=== PATIENT | male | born 2000 | race Two or more races ===

== ENCOUNTER 2018-01-21 23:01 | Emergency (ER) | payer SELFPAY ==
--- NOTE | 2018-01-21 23:19 | Emergency Department Record ---
History of Present Illness - General Chief complaint: ENT Stated complaint: MOTH IN LT EAR Time Seen by Provider: 01/21/18 23:13 Source: Patient Mode of Arrival: Ambulatory Limitations: No limitations - History of Present Illness Initial comments: The patient is here due to having a moth fly into his L ear about 10 minutes prior to presenting to the ER. The patient was very anxious and the moth was removed with lavage. The patient is doing 100% better now. MD complaint: Ear pain Onset/Timin -: Minutes(s) Location: L ear Context- Ear: Other - Related Data Previous Rx's Medication Instructions Recorded Neomycin/Polymyxin B Sulf/Hc 3 drop AFFEAR QID #10 ml 01/21/18 [Cortisporin Otic] Allergies Allergy/AdvReac Type Severity Reaction Status Date / Time No Known Drug Allergies Allergy Verified 01/21/18 23:08 Travel Screening - Travel/Exposure Within Last 30 Days Have you traveled within the last 30 days?: No - Travel Symptoms Symptom Screening: None Review of Systems Constitutional: Denies: Chills, Fever Past Medical History - SOCIAL HISTORY Smoking Status: Never smoker Alcohol Use: Heavy Drug Use: Occasional - RESPIRATORY Hx Respiratory Disorders: No - CARDIOVASCULAR Hx Cardio Disorders: No - NEURO Hx Neuro Disorders: No - GI Hx GI Disorders: No - Hx Genitourinary Disorders: No - ENDOCRINE Hx Endocrine Disorders: No - MUSCULOSKELETAL Hx Musculoskeletal Disorders: No - PSYCH Hx Psych Problems: No - HEMATOLOGY/ONCOLOGY Hx Hematology/Oncology Disorders: No Family Medical History Any Significant Family History?: No Family Hx Comment (NOT TO BE USED IN PLACE OF ITEMS BELOW): DENIES Physical Exam - General General Appearance: Alert, Oriented x3, Cooperative, No acute distress - Head Head exam: Atraumatic, Normocephalic, Normal inspection - Eye Eye exam: Normal appearance, PERRL - ENT ENT exam: TM's normal bilaterally. negative: Normal exam Ear exam: Normal external inspection, External canal tenderness (The L ear canal is mildly erythematous. The TM is intact.) - Neck Neck exam: Normal inspection, Full ROM. negative: Tenderness - Respiratory Respiratory exam: Normal lung sounds bilaterally. negative: Respiratory distress - Cardiovascular Cardiovascular Exam: Regular rate, Normal rhythm, Normal heart sounds Course Vital Signs 01/21/18 23:13 Temperature 98.2 F Pulse Rate [ 111 H Pulse Ox Probe] Respiratory 24 Rate Blood Pressure 126/95 [Left Arm] Pulse Ox 97 - Reevaluation(s) Reevaluation #1: Since the moth was removed without difficulty and the canal is mildly irritated we will place the patient on ear drops for a few days. 01/21/18 23:17 Disposition Disposition: Discharge Clinical Impression: Ear foreign body Qualifiers: Encounter type: initial encounter Laterality: left Qualified Code(s): T16.2XXA - Foreign body in left ear, initial encounter Disposition: Home, Self-Care Condition: (2) Stable Instructions: Ear Foreign Body (ED) Additional Instructions: Please use the drops for 3 days. Please see your family doctor this week if not better. Prescriptions: Neomycin/Polymyxin B Sulf/Hc [Cortisporin Otic] 3 drop AFFEAR QID #10 ml Forms: Patient Portal Access Time of Disposition: 23:19 Quality - Quality Measures Quality Measures: N/A - Blood Pressure Screening View Details: Yes Does Patient Have Any of the Following: No Blood Pressure Classification: Hypertensive Reading Systolic Measurement: 126 Diastolic Measurement: 95 Screening for High Blood Pressure: < First Hypertensive BP, F/U Documented > [ G8950] First Hypertensive Follow-up Interventions: Referral to alternative/primary care provider.
== END 2018-01-21 23:22 | disposition home or self-care (01) ==
LOC: ER 23:01
DX: T16.2XXA Foreign body in left ear, initial encounter (principal)
CPT/HCPCS: 99282

== ENCOUNTER 2018-04-12 21:37 | Emergency (ER) | payer SELFPAY ==
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
== END 2018-04-12 22:10 | disposition home or self-care (01) ==
LOC: ER 21:37
DX: G89.11 Acute pain due to trauma (principal); M54.2 Cervicalgia; M25.511 Pain in right shoulder; V47.5XXA Car driver injured in collision with fixed or stationary object in traffic accident, initial encounter; Y92.488 Other paved roadways as the place of occurrence of the external cause; F17.210 Nicotine dependence, cigarettes, uncomplicated
CPT/HCPCS: 99282